=== PATIENT | male | born 1995 | race Caucasian/White ===

== ENCOUNTER 2021-02-26 14:58 | Emergency (ER) | payer SELFPAY ==
[2021-02-26 15:04] VITALS: BP 127/83; PULSE 74; RESP 19; TEMP 36.2; O2SAT 98
--- NOTE | 2021-02-26 15:08 | DI.RAD.S_ITS ---
PROCEDURE: XR WRIST LT MIN 3V INDICATIONS: Trauma, fall TECHNIQUE: For views of the wrist were acquired. COMPARISON: None. FINDINGS: Bones: No fractures or dislocations. No suspicious bony lesions. Scaphoid view: Intact scaphoid. Normal scapholunate interval. Mild triscaphe degenerative changes and 1st MCP degenerative changes. Soft tissues: No suspicious soft tissue calcifications. IMPRESSION: No acute finding. Dictated by: Carlos Manuel Wilburn M.D. on 02/26/2021 at 16:03 Approved by: Carlos Manuel Wilburn M.D. on 02/26/2021 at 16:04
--- NOTE | 2021-02-26 16:17 | ED.GENADULT ---
HPI - General Adult General Chief complaint: Extremity Injury, Upper Stated complaint: LEFT WRIST INJURY Time Seen by Provider: 02/26/21 15:27 Source: patient Mode of arrival: Family Vehicle Limitations: no limitations History of Present Illness HPI narrative: 25-year-old male here for evaluation of a left wrist injury. He states that earlier today he was skateboarding and fell on his wrist and sustained discomfort afterwards. He reports no other injuries from the event. Has provided some ice over the area prior to arrival. Related Data Allergies Allergy/AdvReac Type Severity Reaction Status Date / Time No Known Drug Allergies Allergy Verified 02/26/21 15:07 Review of Systems Musculoskeletal Musculoskeletal: Denies tingling Comments: Left wrist pain Integumentary/Breasts Skin/Breast: Reports system reviewed and no additional complaints, except as documented Neurologic Neurologic: Denies sensory deficit and Denies tingling Hematologic/Lymphatic On Anticoagulants: No Patient History Medical History Healthy adult Social History Smoking Status: Former smoker Smoking Status: Former smoker tobacco type: cigarettes alcohol intake frequency: 0-2 drinks per day Substance Use Type: does not use Exam Initial Vital Signs Initial Vital Signs: Vital Signs Temperature 97.2 F L 02/26/21 15:04 Pulse Rate 74 02/26/21 15:04 Respiratory Rate 19 02/26/21 15:04 Blood Pressure 127/83 02/26/21 15:04 Pulse Oximetry 98 02/26/21 15:04 Const General: cooperative and comfortable HENMT Head: normal to inspection and normocephalic Cardio Pulses: radial pulses present on the left Skin General: no rashes or lesions noted Neuro General: patient alert, patient awake, patient oriented x3 and moves all extremities Extrem Other: Left hand unremarkable. Does have tenderness to palpation along the distal ulna. No snuffbox tenderness. Elbows unremarkable. Chem pronate and supinate. Shoulders unremarkable. Psych Appearance: grossly normal and well kempt Course Orders Ordered: ED Orders 02/26/21 15:08 XR wrist LT min 3V Stat Vital Signs Vital signs: Vital Signs - 8 hr 02/26/21 15:04 Temperature 97.2 F L Pulse Rate 74 Respiratory Rate 19 Blood Pressure 127/83 Pulse Oximetry 98 Medical Decision Making Imaging Data Extremity x-ray #1: Radiologist's Impression: [address] [address] ReportSigned Patient: Danielito Sultana WMR#: [id number]: [id number]:[id number]/Sex: 25 / MDate of Service: 02/26/21Loc: EDAccession Number: [id number] Procedure: XR wrist LT min 3V Ordering Provider: Aram Rodriguez D.O. PROCEDURE: XR WRIST LT MIN 3V INDICATIONS: Trauma, fall TECHNIQUE: For views of the wrist were acquired. COMPARISON: None. FINDINGS: Bones: No fractures or dislocations. No suspicious bony lesions. Scaphoid view: Intact scaphoid. Normal scapholunate interval. Mild triscaphe degenerative changes and 1st MCP degenerative changes. Soft tissues: No suspicious soft tissue calcifications. IMPRESSION: No acute finding. Dictated by: Carlos Manuel Wilburn M.D. on 02/26/2021 at 16:03 Approved by: Carlos Manuel Wilburn M.D. on 02/26/2021 at 16:04 [facility] Narrative Medical decision making narrative: Patient is neurovascularly intact. No fractures noted on the x-rays. No indication for splinting. We did discuss the use of ice and he was given return precautions. He expressed understanding and agreement. Discharge Plan Departure Patient Disposition: Home Clinical Impression: Sprain and strain of wrist Instructions: DI for Wrist Sprain Activity Restrictions/Additional Instructions: There were no fractures noted on the x-rays. Recommend that you ice your wrist and also use anti-inflammatories. Contact your primary provider for follow-up. Return to the emergency department for any new or worsening symptoms
== END 2021-02-26 16:31 | disposition home or self-care (01) ==
PROVIDERS: Emergency Provider Emergency Medicine
DX: S63.502A Unspecified sprain of left wrist, initial encounter (principal); W18.30XA Fall on same level, unspecified, initial encounter; Y93.51 Activity, roller skating (inline) and skateboarding
CPT/HCPCS: 73110; 99281; 99283